=== PATIENT | female | born 1995 | race Caucasian/White ===

== ENCOUNTER 2016-07-07 08:39 | Emergency (ER) | payer OTHER ==
[~2016-07-07] VITALS: Ht 160 cm; Wt 66.3 kg
[~2016-07-07 08:39] MED LIST: DOXY100T PO; OMEP20CA5 PO; PROM25SU8 PO
[2016-07-07 08:42] VITALS: BP 110/62; PULSE 98; RESP 16; TEMP 100.5; O2SAT 97
[2016-07-07 09:03] VITALS: BP 112/60; PULSE 95; RESP 16; TEMP 100
--- NOTE | 2016-07-07 09:34 | PD ---
HPI Chief Complaint: Cold / Flu Symptoms Time Seen by Provider: 08:58 Travel History International Travel<30 days: No Contact w/Intl Traveler<30days: No Traveled to known affect area: No History of Present Illness HPI This patient complains of runny nose and congestion and sore throat and fever and body aches. Duration 2 days. Severity is mild to moderate. No alleviating factors. PFSH Past Medical History Diminished Hearing: No Medical other: Yes (CARPAL TUNNEL BILAT) Immunizations Current: Yes (all UTD) Tetanus Vaccination: Unknown ?: Not LMP: 06/30/16 Miscarriage: 1 Social History Alcohol Use: No Tobacco Use: No Substance Use: No Allergies-Medications (Allergen,Severity, Reaction): Coded Allergies: No Known Allergies (Verified , 07/07/16) Reported Meds & Prescriptions Reported Meds & Active Scripts Active No Active Prescriptions or Reported Medications Review of Systems General / Constitutional: Positive: Fever HENT: Positive: Sore Throat, No: Headaches Respiratory: Positive: Cough Physical Exam Narrative RESPIRATORY: Respiratory effort unlabored, no retractions or use of accessory muscles. Breath sounds are clear and symmetric. Throat and TMs clear GASTROINTESTINAL: Abdomen soft, non-tender, nondistended. Positive bowel sounds. No hepato-splenomegaly, or palpable masses. No guarding. SKIN: Inspection shows no rash or ulcers. Palpation shows no induration or nodules. No meningeal signs Data Data Last Documented VS Vital Signs Date Time Temp Pulse Resp B/P Pulse Ox O2 Delivery O2 Flow Rate FiO2 07/07/16 09:03 100.0 95 16 112/60 07/07/16 08:42 97 MDM Medical Decision Making Medical Screen Exam Complete: Yes Emergency Medical Condition: Yes Medical Record Reviewed: Yes Differential Diagnosis Flu syndrome, URI, bronchitis Narrative Course Presentation here seems most consistent with an acute viral flu syndrome Supportive care is discussed. Expect gradual resolution No indication for studies or antibiotics Diagnosis Primary Impression: Flu syndrome Additional Instructions: The patient was advised to follow up with their physician and return if they worsen. Med/Other Pt SpecificInfo: Other Scripts No Active Prescriptions or Reported Meds Disposition: 01 DISCHARGE HOME Condition: Stable Simone Johnson MD Jul 07, 2016 09:34
== END 2016-07-07 09:45 | disposition home or self-care (01) ==
LOC: PHED 08:39
DX: J11.1 Influenza due to unidentified influenza virus with other respiratory manifestations (principal)
CPT/HCPCS: 99283